=== PATIENT | male | born 1930 | race Caucasian/White ===

== ENCOUNTER → 2017-09-04 | Outpatient (CLI) | payer MEDICARE, OTHER ==
[~2017-09-04] MED LIST: ASPI-1471 PO; ATEN-65 PO; CHOL100058 PO; CHOL200051 PO; CYAN100017 PO; FLUT16SP19 NS; IBUP200C74 PO; LORA-629 PO; METR45CR10 TP; MINO100C27 PO; OMEP-218 PO; VITA100014 PO; VITA200C8 PO; [UNRECOGNIZED DRUG - CODE] PO; super beta prostate PO
== END ==
LOC: LAB 09:37
PROVIDERS: ATTEND Nurse Practitioner
DX: C44.229 Squamous cell carcinoma of skin of left ear and external auricular canal (principal)
CPT/HCPCS: 88305

== ENCOUNTER 2018-10-24 15:53 | Inpatient (IN) | payer MEDICARE, OTHER ==
--- NOTE | 2018-10-24 15:57 | ER Report ---
History and Physical Time Seen By MD: 15:57 (DALE COX DO) HPI/ROS CHIEF COMPLAINT: Alcohol intoxication HISTORY OF PRESENT ILLNESS: Patient is an 88-year-old male here with alcohol intoxication which is been ongoing since April when the patients spouse . Patient reportedly started imbibing large quantities of alcohol causing him to fall at home where he lives alone. Patient was brought in by his 2 sons today after patient's primary care physician Dr. Almanzar recommended that the patient could've through detoxification due to the danger or risk a causes him by living by himself at home. Patient is visibly intoxicated at time of evaluation and complains of lower extremity pain but denies any further pain at this time. Patient reportedly has been drinking significant amounts of alcohol at home and has had cognitive decline over the course in the past several weeks per patient's sons who have accompanied him here today one of which is patient's power of attorney lawyer. REVIEW OF SYSTEMS: Unable to obtain due to patient's mental status and intoxication (DALE COX DO) Allergies: Coded Allergies: Penicillins (Verified Allergy, Severe, syncope, 05/24/16) Sulfa (Sulfonamide Antibiotics) (Verified Allergy, Intermediate, hallucinations, 05/24/16) propoxyphene (Verified Allergy, Unknown, 09/04/17) Uncoded Allergies: DAIRY (Allergy, Unknown, 10/24/18) chlorine (Allergy, Unknown, 09/04/17) Home Meds Active Scripts Atenolol (ATENOLOL) 25 Mg Tablet, 1 TAB PO QDAY, #90 TAB 1 Refill Prov:HAILEY ALMANZAR MD 07/01/18 Reported Medications Metronidazole (METROCREAM) 45 Gm Cream..g., 1 TUAN TP BID .75% cream 04/25/17 Ibuprofen (ADVIL) 200 Mg Capsule, 1 CAP PO PRN, CAPSULE 04/25/17 [super beta prostate] No Conflict Check, 1 CAP PO DAILY 04/25/17 Omeprazole Magnesium (PRILOSEC OTC) 20 Mg Tablet.dr, 0.5 TAB PO DAILY, TAB 04/25/17 Cyanocobalamin (Vitamin B-12) (B-12) 1,000 Mcg Tablet, 1 TAB PO DAILY 04/25/17 Aspirin (ASPIR 81) 81 Mg Tablet.dr, 1 TAB PO QDAY, TAB 04/25/17 Loratadine (LORATADINE) 10 Mg Tablet, 1 TAB PO PRN 04/25/17 Cholecalciferol (Vitamin D3) (D-2000) 2,000 Unit Capsule, 1 CAP PO DAILY, CAPSULE 04/25/17 Vitamin E (Dl,Tocopheryl Acet) (VITAMIN E) 1,000 Unit Capsule, 1 CAP PO DAILY, CAPSULE 04/25/17 Discontinued Scripts Minocycline Hcl (MINOCYCLINE HCL) 100 Mg Capsule, 1 CAP PO DAILY for 90 Days, #90 CAPSULE 1 Refill Prov:HAILEY ALMANZAR MD 06/30/18 Fluticasone Prop 50 Mcg Ns (FLONASE 50 MCG NS) 16 Gm [place].susp, 2 SPRAYS NS QDAY for 30 Days, #1 BOT 4 Refills Prov:HAILEY ALMANZAR MD 05/09/17 Smoking Status: Former Smoker, Heavy Tobacco Smoker Exposure to Second Hand Smoke?: Yes (DALE COX DO) Constitutional Vital Sign - Last 24 Hours 10/24/18 10/24/18 16:03 18:33 Temp 97.5 Pulse 86 Resp 14 B/P (MAP) 141/99 Pulse Ox 83 O2 Delivery Room Air O2 Flow Rate 2.0 (ISELA SANCHEZ MD) Physical Exam General Appearance: Patient is visibly intoxicated, unable to hold a complicated conversation, becomes easily agitated but is moving all extremities and has no other neurological deficits at time of evaluation Eyes: Pupils equal and round no pallor or injection. Extraocular muscles intact ENT, Mouth: Mucous membranes are moist. Respiratory: There are no retractions, lungs are clear to auscultation. Cardiovascular: Regular rate and rhythm. Gastrointestinal: Abdomen is soft and non tender, no masses, bowel sounds normal. Neurological: Intoxicated, easily irritated at times, moving all extremities spontaneously, no focal neurologic findings aside from intoxicated state and intermittent confusion Skin: Warm and dry, no rashes. Musculoskeletal: Neck is supple non tender. Extremities are nontender, nonswollen and have full range of motion. DIFFERENTIAL DIAGNOSIS: After history and physical exam differential diagnosis was considered for alcohol intoxication, trauma, intracranial bleed, electrolyte abnormality, dehydration, poor nutrition (DALE COX DO) Medical Decision Making Data Points Result Diagram: 10/24/18 1626 10/25/18 1326 Laboratory Hematology Test 10/24/18 16:26 10/24/18 17:50 Red Blood Count 4.32 M/uL (4.00-5.60) Mean Corpuscular Volume 109.7 fL (80.0-96.0) Mean Corpuscular Hemoglobin 37.8 pg (26.0-33.0) Mean Corpuscular Hemoglobin Concent 34.4 g/dL (32.0-36.0) Red Cell Distribution Width 14.0 % (11.5-14.5) Mean Platelet Volume 9.7 fL (7.2-11.1) Neutrophils (%) (Auto) 72.6 % (39.4-72.5) Lymphocytes (%) (Auto) 15.0 % (17.6-49.6) Monocytes (%) (Auto) 11.0 % (4.1-12.4) Eosinophils (%) (Auto) 0.6 % (0.4-6.7) Basophils (%) (Auto) 0.8 % (0.3-1.4) Nucleated RBC Relative Count (auto) 0.1 /100WBC Neutrophils # (Auto) 5.3 K/uL (2.0-7.4) Lymphocytes # (Auto) 1.1 K/uL (1.3-3.6) Monocytes # (Auto) 0.8 K/uL (0.3-1.0) Eosinophils # (Auto) 0.0 K/uL (0.0-0.5) Basophils # (Auto) 0.1 K/uL (0.0-0.1) Nucleated RBC Absolute Count (auto) 0.01 K/uL Peripheral Blood Smear Yes Y/N Sodium Level 139 mmol/L (137-145) Potassium Level 3.3 mmol/L (3.5-5.0) Chloride Level 99 mmol/L (98-107) Carbon Dioxide Level 29 mmol/L (22-30) Blood Urea Nitrogen 6 mg/dl (9-21) Creatinine 0.80 mg/dl (0.66-1.25) Glomerular Filtration Rate Calc > 60.0 Random Glucose 99 mg/dl (75-110) Lactate 3.0 mmol/L (0.7-2.1) Calcium Level 9.4 mg/dl (8.4-10.2) Magnesium Level 1.8 mg/dl (1.7-2.2) Total Bilirubin 0.8 mg/dl (0.2-1.3) Aspartate Amino Transf (AST/SGOT) 76 U/L (0-35) Alanine Aminotransferase (ALT/SGPT) 46 U/L (0-56) Alkaline Phosphatase 120 U/L (0-126) Ammonia < 9 UMOL/L (9-33) Total Protein 7.0 g/dl (6.3-8.2) Albumin 3.9 g/dl (3.5-5.0) Lipase 32 U/L (23-300) Salicylates Level < 10 mg/L Salicylate Last Dose Date unknown Acetaminophen Level < 10 ug/ml Serum Alcohol 179 mg/dl Urine Color Laurita Urine Clarity Slightly-cloudy Urine pH 5.0 pH (4.8-9.5) Urine Specific [place] 1.013 Urine Protein Negative mg/dL (NEGATIVE) Urine Glucose (UA) Negative mg/dL (NEGATIVE) Urine Ketones Negative mg/dL (NEGATIVE) Urine Blood Small (NEGATIVE) Urine Nitrite Negative (NEGATIVE) Urine Bilirubin Negative (NEGATIVE) Urine Urobilinogen 2.0 mg/dL (0.2-1.9) Urine Leukocyte Esterase Small (NEGATIVE) Urine RBC 2 /HPF (0-2/HPF) Urine WBC 4 /HPF (0-5/HPF) Urine Squamous Epithelial Cells Many /LPF (</=FEW) Urine Bacteria Negative /HPF (NONE-FEW) Urine Hyaline Casts Many /LPF (NONE-FEW) Urine Mucus Few /HPF (NONE-FEW) Urine Opiates Screen Negative Urine Barbiturates Screen Negative Ur Tricyclic Antidepressants Screen Negative Urine Phencyclidine Screen Negative Urine Amphetamines Screen Negative Urine Benzodiazepines Screen Negative Urine Cocaine Screen Negative Urine Cannabinoids Screen Negative Chemistry Test 10/24/18 16:26 10/24/18 17:50 White Blood Count 7.4 k/uL (4.5-11.0) Red Blood Count 4.32 M/uL (4.00-5.60) Hemoglobin 16.3 g/dL (14.0-18.0) Hematocrit 47.4 % (42.0-52.0) Mean Corpuscular Volume 109.7 fL (80.0-96.0) Mean Corpuscular Hemoglobin 37.8 pg (26.0-33.0) Mean Corpuscular Hemoglobin Concent 34.4 g/dL (32.0-36.0) Red Cell Distribution Width 14.0 % (11.5-14.5) Platelet Count 239 K/uL (150-450) Mean Platelet Volume 9.7 fL (7.2-11.1) Neutrophils (%) (Auto) 72.6 % (39.4-72.5) Lymphocytes (%) (Auto) 15.0 % (17.6-49.6) Monocytes (%) (Auto) 11.0 % (4.1-12.4) Eosinophils (%) (Auto) 0.6 % (0.4-6.7) Basophils (%) (Auto) 0.8 % (0.3-1.4) Nucleated RBC Relative Count (auto) 0.1 /100WBC Neutrophils # (Auto) 5.3 K/uL (2.0-7.4) Lymphocytes # (Auto) 1.1 K/uL (1.3-3.6) Monocytes # (Auto) 0.8 K/uL (0.3-1.0) Eosinophils # (Auto) 0.0 K/uL (0.0-0.5) Basophils # (Auto) 0.1 K/uL (0.0-0.1) Nucleated RBC Absolute Count (auto) 0.01 K/uL Peripheral Blood Smear Yes Y/N Glomerular Filtration Rate Calc > 60.0 Lactate 3.0 mmol/L (0.7-2.1) Calcium Level 9.4 mg/dl (8.4-10.2) Magnesium Level 1.8 mg/dl (1.7-2.2) Total Bilirubin 0.8 mg/dl (0.2-1.3) Aspartate Amino Transf (AST/SGOT) 76 U/L (0-35) Alanine Aminotransferase (ALT/SGPT) 46 U/L (0-56) Alkaline Phosphatase 120 U/L (0-126) Ammonia < 9 UMOL/L (9-33) Total Protein 7.0 g/dl (6.3-8.2) Albumin 3.9 g/dl (3.5-5.0) Lipase 32 U/L (23-300) Salicylates Level < 10 mg/L Salicylate Last Dose Date unknown Acetaminophen Level < 10 ug/ml Serum Alcohol 179 mg/dl Urine Color Laurita Urine Clarity Slightly-cloudy Urine pH 5.0 pH (4.8-9.5) Urine Specific [place] 1.013 Urine Protein Negative mg/dL (NEGATIVE) Urine Glucose (UA) Negative mg/dL (NEGATIVE) Urine Ketones Negative mg/dL (NEGATIVE) Urine Blood Small (NEGATIVE) Urine Nitrite Negative (NEGATIVE) Urine Bilirubin Negative (NEGATIVE) Urine Urobilinogen 2.0 mg/dL (0.2-1.9) Urine Leukocyte Esterase Small (NEGATIVE) Urine RBC 2 /HPF (0-2/HPF) Urine WBC 4 /HPF (0-5/HPF) Urine Squamous Epithelial Cells Many /LPF (</=FEW) Urine Bacteria Negative /HPF (NONE-FEW) Urine Hyaline Casts Many /LPF (NONE-FEW) Urine Mucus Few /HPF (NONE-FEW) Urine Opiates Screen Negative Urine Barbiturates Screen Negative Ur Tricyclic Antidepressants Screen Negative Urine Phencyclidine Screen Negative Urine Amphetamines Screen Negative Urine Benzodiazepines Screen Negative Urine Cocaine Screen Negative Urine Cannabinoids Screen Negative Toxicology Test 10/24/18 16:26 10/24/18 17:50 Salicylates Level < 10 mg/L Salicylate Last Dose Date unknown Acetaminophen Level < 10 ug/ml Serum Alcohol 179 mg/dl Urine Opiates Screen Negative Urine Barbiturates Screen Negative Ur Tricyclic Antidepressants Screen Negative Urine Phencyclidine Screen Negative Urine Amphetamines Screen Negative Urine Benzodiazepines Screen Negative Urine Cocaine Screen Negative Urine Cannabinoids Screen Negative Urinalysis Test 10/24/18 17:50 Urine Color Laurita Urine Clarity Slightly-cloudy Urine pH 5.0 pH (4.8-9.5) Urine Specific [place] 1.013 Urine Protein Negative mg/dL (NEGATIVE) Urine Glucose (UA) Negative mg/dL (NEGATIVE) Urine Ketones Negative mg/dL (NEGATIVE) Urine Blood Small (NEGATIVE) Urine Nitrite Negative (NEGATIVE) Urine Bilirubin Negative (NEGATIVE) Urine Urobilinogen 2.0 mg/dL (0.2-1.9) Urine Leukocyte Esterase Small (NEGATIVE) Urine RBC 2 /HPF (0-2/HPF) Urine WBC 4 /HPF (0-5/HPF) Urine Squamous Epithelial Cells Many /LPF (</=FEW) Urine Bacteria Negative /HPF (NONE-FEW) Urine Hyaline Casts Many /LPF (NONE-FEW) Urine Mucus Few /HPF (NONE-FEW) (ISELA SANCHEZ MD) EKG/Imaging Imaging PATIENT NAME: Kristofer Aranda : 1930 MR: [id number] V: [id number] EXAM DATE: [id number] ORDERING PHYSICIAN: DALE COX TECHNOLOGIST: [place] [facility] [place]: Kristofer Aranda : 1930 Visit/Account:[id number] Date of Sevice: 10/24/2018 EXAMINATION: Head CT without intravenous contrast HISTORY: Fall. COMPARISON: None. TECHNIQUE: Contiguous axial images were obtained from the skull base to the vertex without intravenous contrast. Sagittal and coronal reformatted images are also submitted. One of the following dose optimization techniques was utilized in the performance of this exam: Automated exposure control; adjustment of the mA and/or kV according to the patient's size; or use of an iterative reconstruction technique. Specific details can be referenced in the facility's radiology CT exam operational policy. FINDINGS: Brain and intracranial structures: There are hypoattenuating bilateral subdural collections overlying the cerebral convexities with hyperattenuating internal septations. The subdural collection on the right measures 3.2 cm in thickness and the subdural collection on the left measures 1.2 cm in thickness. There is 7 mm leftward midline shift at the septum pellucidum. Sulci in the right cerebral hemisphere are narrowed. The right lateral ventricle is narrowed. There is a background of mild generalized cerebral atrophy. The basal cisterns are patent. Shane-white matter differentiation is maintained. Vessels: Calcification of the carotid siphons and intracranial vertebral arteries. Calvarium / scalp: Negative. No acute fracture. Skull base / visualized face: Negative. Visualized sinuses / orbits: Mild mucosal thickening in the maxillary sinuses and ethmoid air cells. Trace mucosal thickening in the frontal sinuses. 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 These findings were discussed with DALE COX at 10/24/2018 5:00 PM. Report Dictated By: Johan Duran MD at 10/24/2018 4:59 PM Report E-Signed By: Johan Duran MD at 10/24/2018 5:08 PM (DALE COX DO) ED Course/Re-evaluation ED Course Patient is an 88-year-old male here with alcohol intoxication brought in by patient's sons who are concerned because the patient lives alone and has been drinking alcohol consistently for the past several months since April. Patient was recommended to come in by patient's primary care physician Dr. Almanzar due to danger to himself due to alcohol intoxication. Patient was found to have a large intracranial bleed was likely old were greater than 1 month with some midline shift. Patient is DNR/DNI patient's sons do not wish to have the patient transferred. The patient's comorbidities including intracranial bleed, concurrent alcohol intoxication, danger of withdrawal precipitating worsening brain injury, I discussed the patient with Dr. Elysia woodward who sat down with the patient's sons. I also discussed the patient with the patient's primary care physician Dr. Almanzar who agreed that the patient does not have capacity due to his current situations with alcohol intoxication, intracranial bleeding and trauma. I discussed the patient with Dr. Sanchez at shift change regarding plan of care and need for inpatient hospitalization in order to monitor the patient for signs of withdrawal, possible seizures, and arrange for outpatient home health. Patient was hemodynamically stable throughout course in the emergency department. Decision to Disposition Date: Oct 24, 2018 Decision to Disposition Time: 18:00 (DALE COX DO) ED Course I reviewed this patient with Dr. Cox at shift change. Dr. Godinez came to the ER for further evaluation and spoke with the patient and his sons. He does not have the mental capacity at this time to refuse admission and the patient's son, who has power of attorney lawyer, would like to have him admitted. We gave the patient Ativan 2mg IV, Benadryl 50mg IV, and then Zyprexa 10mg IM to help facilitate admitting to [facility] because the patient is refusing to be admitted. Dr. Godinez discussed risk/benefit of these medicines with the patient's sons who are in agreement with the plan at this time. The plan will be to re-evaluate over time to see how his mental capacity is doing as the alcohol clears and re-evaluate to help determine how much the subdural is influencing the mental capacity and if it is worsening or stable. Decision to Disposition Date: Oct 24, 2018 Decision to Disposition Time: 19:12 (ISELA SANCHEZ MD) Depart Departure Latest Vital Signs Vital Signs Date Time Temp Pulse Resp B/P (MAP) Pulse Ox O2 Delivery O2 Flow Rate FiO2 10/24/18 18:33 2.0 10/24/18 16:03 97.5 86 14 141/99 83 Room Air (ISELA SANCHEZ MD) Impression: Primary Impression: Altered mental status Additional Impressions: Alcohol withdrawal Subdural hematoma Condition: Condition Unchanged Disposition: Admitted from ER Referrals: HAILEY ALMANZAR MD (PCP) Problem Qualifiers Primary Impression: Altered mental status Altered mental status type: unspecified Qualified Codes: R41.82 - Altered mental status, unspecified Additional Impressions: Alcohol withdrawal Complication of substance-induced condition: uncomplicated Qualified Codes: F10.230 - Alcohol dependence with withdrawal, uncomplicated DALE COX DO Oct 24, 2018 15:57 ISELA SANCHEZ MD Oct 24, 2018 19:20
[2018-10-24] MEDS ORDERED: THIAMINE HCL(*) 200 MG/2 ML IN 100 MG, FOLIC ACID(*) 50 MG/10 ML INJ 1 MG, MULTIVITAMIN... IV ONE (16:14)
[2018-10-24 16:46] LABS: PLATELET COUNT, AUTOMATED 239 K/uL (150-450)
--- NOTE | 2018-10-24 17:13 | RADIOLOGY IMAGING REPORT ---
FACILITY: [facility] PATIENT NAME: Kristofer Aranda : 1930 MR: [id number] V: [id number] EXAM DATE: ORDERING PHYSICIAN: DALE DAVIS TECHNOLOGIST: Location: [facility] - [place] Patient: Kristofer Aranda : 1930 Visit/Account:[id number] Date of Sevice: 10/24/2018 EXAMINATION: Head CT without intravenous contrast HISTORY: Fall. COMPARISON: None. TECHNIQUE: Contiguous axial images were obtained from the skull base to the vertex without intraven ous contrast. Sagittal and coronal reformatted images are also submitted. One of the following dose optimization techniques was utilized in the performance of this exam: Autom ated exposure control; adjustment of the mA and/or kV according to the patient's size; or use of an i terative reconstruction technique. Specific details can be referenced in the facility's radiology C T exam operational policy. FINDINGS: Brain and intracranial structures: There are hypoattenuating bilateral subdural collections overlyin g the cerebral convexities with hyperattenuating internal septations. The subdural collection on the right measures 3.2 cm in thickness and the subdural collection on the left measures 1.2 cm in thickne ss. There is 7 mm leftward midline shift at the septum pellucidum. Sulci in the right cerebral hemisp here are narrowed. The right lateral ventricle is narrowed. There is a background of mild generalized cerebral atrophy. The basal cisterns are patent. Shane-white matter differentiation is maintained. Vessels: Calcification of the carotid siphons and intracranial vertebral arteries. Calvarium / scalp: Negative. No acute fracture. Skull base / visualized face: Negative. Visualized sinuses / orbits: Mild mucosal thickening in the maxillary sinuses and ethmoid air cells. Trace mucosal thickening in the frontal sinuses. 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 These findings were discussed with DALE DAVIS at 10/24/2018 5:00 PM. Report Dictated By: Johan Duran MD at 10/24/2018 4:59 PM Report E-Signed By: Johan Duran MD at 10/24/2018 5:08 PM WSN:[id number]
[2018-10-24] MEDS ORDERED: diphenhydrAMINE 50 MG/ML VIAL IVP ONE (19:10)
[2018-10-24] MEDS ORDERED: LORazepam 2 MG/ML VIAL IVP ONE (19:10)
[2018-10-24] MEDS ORDERED: WATER STERILE 10 ML VIAL IM ONLY ONE (19:10)
[2018-10-24] MEDS ORDERED: OLANZapine 10 MG VIAL IM ONLY ONE (19:10)
[2018-10-24 19:58] VITALS: BP 151/86
[2018-10-24] MEDS ORDERED: DIAZEPAM 10 MG TAB PO PRN ×2 (20:30)
[2018-10-24] MEDS ORDERED: LORazepam 2 MG/ML VIAL IVP PRN (20:30)
[2018-10-24] MEDS ORDERED: OLANZapine 10 MG VIAL IM ONLY PRN (20:30)
[2018-10-24] MEDS ORDERED: INFLUENZA VIRUS VAC 0.5ML SYR IM ONLY ONE (20:30)
[2018-10-24] MEDS ORDERED: ACETAMINOPHEN 325 MG TAB PO PRN (20:30)
--- NOTE | 2018-10-24 21:55 | History & Physical ---
History of Present Illness Chief Complaint falls, EtOH abuse History of Present Illness 88M presented after frequent falls, and AMS. PMHx significant for EtOH abuse, depression. Daily drinker of 1/5 hard EtOH daily after of partner of 30 ye ars. Family report decline over last few months in ability to care for self and possible recent acceleration over last 2 weeks. Had fall with laceration on head 6 weeks ago several smaller falls since then. In ER ZAKIYA > 170, CT head demonstrated significant R subdural hematoma with midline shift and smaller subdural hematoma on L. Patient and family do not wish to pursue any aggressive treatment. Patient adamant he does not want to be admitted; however, he is unable to repeat back to me what could happen due to the brain bleed. Again discussed findings of blood around his brain and after brief pause he was unable to tell me anything about the radiology findings. Patient is incapable of medical decision making at this time, may resolve with detoxification from EtOH, DPOA present wishes him to be admitted for withdrawal. Patient admitted for alcohol withdrawal. History Problems: (1) Rosacea, acne Status: Chronic (2) Coronary atherosclerosis Status: Chronic (3) Essential hypertension Status: Chronic Home Meds Active Scripts Atenolol (ATENOLOL) 25 Mg Tablet, 1 TAB PO QDAY, #90 TAB 1 Refill Prov:HAILEY ALMANZAR MD 07/01/18 Reported Medications Metronidazole (METROCREAM) 45 Gm Cream..g., 1 TUAN TP BID .75% cream 04/25/17 Ibuprofen (ADVIL) 200 Mg Capsule, 1 CAP PO PRN, CAPSULE 04/25/17 [super beta prostate] No Conflict Check, 1 CAP PO DAILY 04/25/17 Omeprazole Magnesium (PRILOSEC OTC) 20 Mg Tablet.dr, 0.5 TAB PO DAILY, TAB 04/25/17 Cyanocobalamin (Vitamin B-12) (B-12) 1,000 Mcg Tablet, 1 TAB PO DAILY 04/25/17 Aspirin (ASPIR 81) 81 Mg Tablet.dr, 1 TAB PO QDAY, TAB 04/25/17 Loratadine (LORATADINE) 10 Mg Tablet, 1 TAB PO PRN 04/25/17 Cholecalciferol (Vitamin D3) (D-1999) 2,000 Unit Capsule, 1 CAP PO DAILY, CAPSULE 04/25/17 Vitamin E (Dl,Tocopheryl Acet) (VITAMIN E) 1,000 Unit Capsule, 1 CAP PO DAILY, CAPSULE 04/25/17 Discontinued Scripts Minocycline Hcl (MINOCYCLINE HCL) 100 Mg Capsule, 1 CAP PO DAILY for 90 Days, #90 CAPSULE 1 Refill Prov:HAILEY ALMANZAR MD 06/30/18 Fluticasone Prop 50 Mcg Ns (FLONASE 50 MCG NS) 16 Gm [place].susp, 2 SPRAYS NS QDAY for 30 Days, #1 BOT 4 Refills Prov:HAILEY ALMANZAR MD 05/09/17 Allergies: Coded Allergies: Penicillins (Verified Allergy, Severe, syncope, 05/24/16) Sulfa (Sulfonamide Antibiotics) (Verified Allergy, Intermediate, hallucinations, 05/24/16) propoxyphene (Verified Allergy, Unknown, 09/04/17) Uncoded Allergies: DAIRY (Allergy, Unknown, 10/24/18) chlorine (Allergy, Unknown, 09/04/17) Patient History: FH: COPD (chronic obstructive pulmonary disease) FATHER, , Age:74 BROTHER, , Age:59 SISTER, , Age:65 SISTER, , Age:55 FH: alcohol abuse BROTHER, , Age:59 Smoking Status: Former Smoker, Heavy Tobacco Smoker Exposure to Second Hand Smoke?: Yes Hx Alcohol Use: Yes (2 PINTS LIQUOR PER DAY ) Review of Systems All Systems Reviewed/Normal: Yes, Except as Noted Neurological: No Slurred Speech Eyes: No Vision Change Cardiovascular: No Chest Pain, No Palpitations Exam Vital Signs Vital Signs Date Time Temp Pulse Resp B/P (MAP) Pulse Ox O2 Delivery O2 Flow Rate FiO2 10/24/18 19:27 79 18 160/92 (114) 94 Nasal Cannula 2 10/24/18 16:03 97.5 General Appearance: Alert, Awake, No Acute Distress Neuro: No Gross deficits ENT: Normal Cardiovascular: Normal Rhythm & Peripheral Pulses Respiratory: No Respiratory Distress GI: Abd Soft and Non-Tender Medical Decision Making Data Points Result Diagram: 10/24/18 1626 10/24/18 162 Assessment and Plan Problems: (1) Alcohol withdrawal Status: Acute Assessment & Plan: Begin CIWA, thiamine, folate. Unclear what benefit detox may have in the manager long term care as he has shown resilience in his ability to get EtOH and he does not wish to stop drinking at this time. (2) Subdural hematoma Status: Chronic Assessment & Plan: Per radiology appears to be chronic, R side >3cm thickness extends frontal to occipital lobes with midline 7mm shift. L side smaller under 2cm thickness and much smaller in occipital/parietal area. Family do not wish any aggressive intervention. Possible that if slowly bleeding may decompensate and ultimately could from injury. Venous Thromboembolism Antithrombotics Is Pt On Any Antithrombotics?: No Prophylaxis Tx Contraindicated Pharmacological Contraindicati: Active Bleeding (large subdural) Exam Sepsis Risk: No Definite Risk Problem Qualifiers (1) Alcohol withdrawal: Complication of substance-induced condition: uncomplicated Qualified Codes: F10.230 - Alcohol dependence with withdrawal, uncomplicated LYDIA FOFANA DO Oct 24, 2018 21:55
[2018-10-24 23:23] VITALS: BP 142/84
[2018-10-25 02:54] VITALS: BP 152/101
[2018-10-25] MEDS: QUEtiapine FUM 25 MG TAB PO PRN ×2 (03:02→22:09)
[2018-10-25 07:11] VITALS: BP 144/85
[2018-10-25] MEDS ORDERED: KCL 2 MEQ/ML 20 MEQ/10 ML VIAL 40 MEQ in NS(*) 0.9% 1000 ML BAG 1,000 ML IV ONE (08:30)
[2018-10-25] MEDS: FOLIC ACID 1 MG TAB PO SCH (08:49)
[2018-10-25] MEDS: THIAMINE HCL 100 MG TAB PO SCH (08:49)
[2018-10-25 11:13] VITALS: BP 148/93
--- NOTE | 2018-10-25 11:55 | Hospitalist Progress Note ---
Subjective Progress Notes Subjective He is very sleepy. He denies pain. Physical Exam Vital Signs Date Time Temp Pulse Resp B/P (MAP) Pulse Ox O2 Delivery O2 Flow Rate FiO2 10/25/18 11:13 97.5 88 14 148/93 (111) 90 Nasal Cannula 1.5 Intake and Output 10/25/18 07:00 Intake Total 1000 ml Balance 1000 ml IV Total 1000 ml # Voids 1 General Appearance: No Acute Distress, Other (Sleeping) Neuro: Other (Answers to voice. ) Result Diagram: 10/24/18 1626 10/25/18 0523 Assessment and Plan Problems: (1) Alcohol withdrawal Status: Acute Assessment & Plan: Begin CIWA, thiamine, folate. 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 No requiring benzodiazepines by CIWA scoring, yet. (2) Subdural hematoma Status: Chronic Assessment & Plan: Per radiology appears to be chronic, R side >3cm thickness extends frontal to occipital lobes with midline 7mm shift. L side smaller under 2cm thickness and much smaller in occipital/parietal area. Family do not wish any aggressive intervention. He is not able to make his own medical decisions at this point based on mental status exam. Possible that if slowly bleeding may decompensate and ultimately could from injury. Treating with Seroquel for agitation. Exam Sepsis Risk: No Definite Risk Problem Qualifiers (1) Alcohol withdrawal: Complication of substance-induced condition: uncomplicated Qualified Codes: F10.230 - Alcohol dependence with withdrawal, uncomplicated GURPREET DUMONT MD Oct 25, 2018 11:55
[2018-10-25 14:58] VITALS: BP 158/99
[2018-10-25 19:02] VITALS: BP 141/83
[2018-10-25 19:59] VITALS: BP 136/86
[2018-10-25] MEDS: MELATONIN 3 MG TAB PO SCH (21:11)
[2018-10-26 00:07] VITALS: BP 152/93
[2018-10-26 06:53] VITALS: BP 132/73
[2018-10-26] MEDS: FOLIC ACID 1 MG TAB PO SCH (09:16)
[2018-10-26] MEDS: THIAMINE HCL 100 MG TAB PO SCH (09:16)
[2018-10-26] MEDS ORDERED: LORATADINE 10 MG TAB PO PRN (10:00)
[2018-10-26] MEDS: ATENOLOL 25 MG TAB PO SCH (10:21)
[2018-10-26 11:48] VITALS: BP 164/98
--- NOTE | 2018-10-26 11:56 | Hospitalist Progress Note ---
Subjective Progress Notes Subjective He is awake and alert. He denies any specific complaints. Physical Exam Vital Signs Date Time Temp Pulse Resp B/P (MAP) Pulse Ox O2 Delivery O2 Flow Rate FiO2 10/26/18 09:47 83 10/26/18 08:15 Nasal Cannula 2.0 10/26/18 06:53 98.9 75 20 132/73 (92) Intake and Output 10/26/18 07:00 Intake Total 3020 ml Balance 3020 ml Intake Oral 2000 ml IV Total 1020 ml # Voids 4 # Bowel Movements 1 General Appearance: Alert, Awake Neuro: Other (No focal motor deficits. He is oriented to person and place, but only partially to time. His short term memory is poor - able to recall only 1 of 3 items.) Eyes: PERRLA Cardiovascular: Regular Rate and Rhythm Respiratory: Clear to Auscultation GI: Soft and Non-Tender Extremities: Warm Integumentary: Generalized Fragile Skin Result Diagram: 10/24/18 1626 10/25/18 1326 Assessment and Plan Problems: (1) Subdural hematoma Status: Chronic Assessment & Plan: Radiology reported it appears to be chronic, R side >3cm thickness extends frontal to occipital lobes with midline 7mm shift. Left side is smaller under 2cm thickness and much smaller in occipital/parietal area. Patient and family do not wish any aggressive intervention. It appears he is not able to make his own medical decisions at this point based on mental status exam. Both family and patient would like to try to have him back in his own home with help from Home Health (or possibly Hospice if needed). The patient and his family were advised he should not drive any longer. The family is in agreement, but patient is somewhat resistant. Will have discharge planning work with them. (2) Alcohol withdrawal Status: Acute Assessment & Plan: He is on CIWA protocol. Not requiring benzodiazepines by CIWA scoring, as of yet. He is on vitamin supplements. Exam Sepsis Risk: No Definite Risk Problem Qualifiers (1) Alcohol withdrawal: Complication of substance-induced condition: uncomplicated Qualified Codes: F10.230 - Alcohol dependence with withdrawal, uncomplicated VERONICA HARMON MD Oct 26, 2018 11:56
--- NOTE | 2018-10-26 13:29 | NUR ---
Occupational Therapy Impression Mod Ax1 supine<>sit bed mobility with trapeze. CGA/SBA ambulation with RW in room. Pt declined toileting. Seated up in chair for lunch. Rec speech consult for cognition to promote recommendations for safe discharge. Rec home with HomeHealth, [facility] for IADLs, and possible [facility] services. Occupational Therapy Goals 1) Pt will be SBA UB/LB dressing. 2) Pt will be SBA grooming/hygiene. 3) Pt will be SBA toilet task. Patient's Goal
--- NOTE | 2018-10-26 14:21 | NUR ---
Physical Therapy Impression PT eval complete. Physical Therapy Goals 1. Mod I bed mobility. 2. SBA transfers. 3. SBA gait x 150' with least restrictive device. 4. Ascend/descend 1 stair. Patient's Goals
--- NOTE | 2018-10-26 14:24 | NUR ---
Physical Therapy Impression Pt required encouragement to participate. Pt requires Mod A x2 for supine>sit transfer, CGA to stand, and CGA to ambulate 10' with RW but was self-limiting on distance. Recommend additional assistance at home as well as home health. Also recommended Speech evaluation due to decreased cognition, Dr. Jenni Maxwell made aware of recommendation. Physical Therapy Goals 1. Mod I bed mobility. 2. SBA transfers. 3. SBA gait x 150' with least restrictive device. 4. Ascend/descend 1 stair. Patient's Goals
[2018-10-26 15:39] VITALS: BP 164/96
--- NOTE | 2018-10-26 16:03 | SPEECH INITIAL EVALUATION ---
SPEECH THERAPY EVALUATION REPORT Cognitive Linguistic Assessment Patient Name: Kristofer Astorga Date of Evaluation: 10/26/18 Patient : [birth year], 88 yo Clinician: Lindsay Galvan M.S., CCC-DIRECTOR OF SOLUTIONS ARCHITECTURE Treatment Dx: Moderate cognitive linguistic deficits BACKGROUND The patient is an 88 year old male who presented to the ED at [facility] on 10/24/18 with AMS, frequent falls. PMHx significant for EtOH abuse, depression. The pt experienced a fall with laceration on head [address] demonstrated significant R subdural hematoma with midline shift and smaller subdural hematoma on L. Dx: subdural hematoma, EtOH withdrawal PMHx: depression, EtOH abuse Prior living situation: pt resides alone in private residence. Receives assistance for meals a few times a week. Independent with majority of ADLs/IADLs. Family recently insisted he cease driving activities. ASSESSMENT AND INTERVENTIONS The pt participated in a cognitive linguistic assessment at the bedside using the [place] Cognitive Assessment (MoCA) version 7.1 paired with informal evaluation procedures. 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 -Cognitive Domains Demonstrating Strength: item naming, temporal orientation, environmental orientation Pt presents with moderate cognitive linguistic deficits most notably characterized by memory impairments, with subsequent impact on efficient problem solving skills and completion of tasks requiring executive functioning. Processing speed was also delayed. Unclear to what extent the pt is affected by symptoms of withdrawal; however, etiology of cognitive linguistic deficits is consistent with brain injury. Deficits in short-term memory resulted in a tendency to repeat previously discussed topics of conversation. The pt required multiple repetitions of task instructions, and frequently repeated prior mistakes during completion of subtests on the MoCA. He often acknowledged errors, but struggled to successfully problem-solve via modification to prior attempts. He became disorganized throughout task completion, with further disorganization noted in verbal output. Executive function skills were observed during tasks requiring planning and self-monitoring. Areas of strength were noted in attention, orientation. The pt also exhibited a fair amount of insight into current deficits, with knowledge of medical etiology/pathology and acceptance of recommended elevated level of assistance upon d/c to home environment. Results and recommendations were transparently discussed with the pt and his sons at the bedside. Sons endorse a moderate decline in cognitive status in comparison to baseline. For optimized safety with concern for ability to manage IADL/ADLs, initial provision of 24/7 support is recommended at discharge. Additionally recommend ST services to further support transition to home living environment in the setting of progressive/chronic subdural hematomas. RECOMMENDATIONS Acute ST 4x/wk ST Initial provision of 24/7 supervision to support safe transition to home living environment REHAB PROGNOSIS: Fair. Pt w/ emerging insight into deficits, motivated to return home, strong family support ST POC 1. Pt will recall 2/2 items embedded within a functional activity when provided with mod verbal cues and access to external visual aides to compensate for short-term memory deficits. Thank you for this referral. Please call [phone] Lindsay Galvan M.S., CCC-DIRECTOR OF SOLUTIONS ARCHITECTURE [*] CLAY
--- NOTE | 2018-10-26 16:06 | NUR ---
Speech Therapy Impression Evaluation complete. See report for detailed information. Pt presents with moderate cognitive linguistic deficits most notably characterized by memory impairments, with subsequent impact on efficient problem solving skills and completion of tasks requiring executive functioning. Processing speed was also delayed. Etiology is consistent with brain injury. For optimized safety with concern for ability to manage IADL/ADLs, initial provision of 24/7 support is recommended at discharge. Additionally rec [facility] services to further support transition to home living environment in the setting of progressive/chronic subdural hematomas.
[2018-10-26 19:43] VITALS: BP 165/98
[2018-10-26] MEDS: MELATONIN 3 MG TAB PO SCH (21:03)
[2018-10-27 01:35] VITALS: BP 168/97
[2018-10-27 06:16] LABS: PLATELET COUNT, AUTOMATED 155 K/uL (150-450)
[2018-10-27 06:34] VITALS: BP 166/92
[2018-10-27] MEDS ORDERED: Tamsulosin Hcl PO (08:51)
[2018-10-27] MEDS ORDERED: THIA100T20 PO (08:51)
--- NOTE | 2018-10-27 08:54 | Hospitalist Depart ---
Discharge Summary Reason for Hosp/Final Diag: (1) Subdural hematoma Status: Chronic Hospital Course & Plan: Radiology reported it appears to be chronic, R side >3cm thickness extends frontal to occipital lobes with midline 7mm shift. Left side is smaller under 2cm thickness and much smaller in occipital/parietal area. Patient and family do not wish any aggressive intervention. It appears he is not able to make his own medical decisions at this point based on mental status exam. Both family and patient would like to try to have him back in his own home with help from Home Health (or possibly Hospice if needed). The patient and his family were advised he should not drive any longer. The family is in agreement, but patient is somewhat resistant. (2) Alcohol withdrawal Status: Acute Hospital Course & Plan: He was on CIWA protocol, but did not require treatment. He has been placed on thiamine. Departure Latest Vital Signs Vital Signs 10/27/18 10/27/18 06:34 07:01 Temp 97.6 Pulse 69 Resp 16 B/P (MAP) 166/92 (116) Pulse Ox 96 O2 Delivery Nasal Cannula O2 Flow Rate 1.0 Weight (Pounds): 147 Result Diagram: 10/27/1852510/27/18525 Condition: Improved Discharge: Home Health PT/OT Follow Up For: PT For Strengthening, OT For ADL's, PT Evaluation and Treat, OT Evaluation and Treat Home Health RN Follow Up For: Medication Management, Nursing Assessment Home Health [facility] Follow Up For: ADL Assistance, Other Discharge Code Status: DNR, DNI Discharge Instructions Home Meds Active Scripts Thiamine Hcl (VITAMIN B-1) 100 Mg Tablet, 100 MG PO DAILY@0900, #30 TAB Prov:JIGNESH PENNINGTON DO 10/27/18 [Tamsulosin Hcl(*) 0.4 Mg Cap] 0.4 MG CAP No Conflict Check, 0.4 MG PO QHS, #30 CAP Prov:JIGNESH PENNINGTON DO 10/27/18 Atenolol (ATENOLOL) 25 Mg Tablet, 1 TAB PO QDAY, #90 TAB 1 Refill Prov:TRACIE ALMANZAR MD 07/01/18 Reported Medications [super beta prostate] No Conflict Check, 1 CAP PO DAILY 04/25/17 Omeprazole Magnesium (PRILOSEC OTC) 20 Mg Tablet.dr, 0.5 TAB PO DAILY, TAB 04/25/17 Cyanocobalamin (Vitamin B-12) (B-12) 1,000 Mcg Tablet, 1 TAB PO DAILY 04/25/17 Loratadine (LORATADINE) 10 Mg Tablet, 1 TAB PO PRN 04/25/17 Cholecalciferol (Vitamin D3) (D-2000) 2,000 Unit Capsule, 1 CAP PO DAILY, CAPSULE 04/25/17 Vitamin E (Dl,Tocopheryl Acet) (VITAMIN E) 1,000 Unit Capsule, 1 CAP PO DAILY, CAPSULE 04/25/17 Discontinued Reported Medications Metronidazole (METROCREAM) 45 Gm Cream..g., 1 TUAN TP BID .75% cream 04/25/17 Ibuprofen (ADVIL) 200 Mg Capsule, 1 CAP PO PRN, CAPSULE 04/25/17 Aspirin (ASPIR 81) 81 Mg Tablet.dr, 1 TAB PO QDAY, TAB 04/25/17 Discontinued Scripts Minocycline Hcl (MINOCYCLINE HCL) 100 Mg Capsule, 1 CAP PO DAILY for 90 Days, #90 CAPSULE 1 Refill Prov:TRACIE ALMANZAR MD 06/30/18 Fluticasone Prop 50 Mcg Ns (FLONASE 50 MCG NS) 16 Gm [place].susp, 2 SPRAYS NS QDAY for 30 Days, #1 BOT 4 Refills Prov:TRACIE ALMANZAR MD 05/09/17 Diet: Regular Activity: As Tolerated Copies to: TRACIE ALMANZAR MD ; Venous Thromboembolism Antithrombotics Is Pt On Any Antithrombotics?: No [id number] Certification Face to Face Home Health Certification Patient's Primary Care Provider: Tracie Almanzar MD Institutional Provider conducted the [id number] encounter. Electronic Undersigning Physician Certifies Home Health. I certify that the patient has been under my care and that I had a [id number] encounter that meets the physician [id number] encounter requirements with this patient. This patient is home-bound due to safety issues and continues to require assistance with ADL's. I certify that based on my findings, that Nursing, Aides and the following Home Health services are medically necessary: Medical Necessity: Nursing, Rehab Date Face to Face Conducted: Oct 27, 2018 Problem Qualifiers (1) Alcohol withdrawal: Complication of substance-induced condition: uncomplicated Qualified Codes: F10.230 - Alcohol dependence with withdrawal, uncomplicated JIGNESH PENNINGTON DO Oct 27, 2018 08:54
--- NOTE | 2018-10-27 08:55 | NUR ---
OCCUPATIONAL THERAPY Dressing Assistance: SBA Dressing Aid Required: None Bathing Assistance: N/T with OT Home Assessment: Not Completed-Pt will benefit from home assessment and appropriate safety recommendations Feeding Assistance: Independent Feeding Specialized Equipment: None Verbalizes Needs: Yes Understands Precautions: Yes Cooperative: Yes Family Teaching: No Occupational Therapy Comment:
[2018-10-27] MEDS ORDERED: PANTOPRAZOLE SOD 40 MG TABEC PO SCH (09:00)
[2018-10-27] MEDS ORDERED: CYANOCOBALAMIN 1000 MCG TAB PO SCH (09:00)
[2018-10-27] MEDS: ATENOLOL 25 MG TAB PO SCH (09:11)
[2018-10-27] MEDS: FOLIC ACID 1 MG TAB PO SCH (09:11)
[2018-10-27] MEDS: THIAMINE HCL 100 MG TAB PO SCH (09:11)
--- NOTE | 2018-10-27 10:07 | Miscellaneous Provider Note ---
Miscellaneous Provider Note Note This patient is unable to make his own decisions secondary to dementia and subdural hematoma. Decision making has been deferred to his son, who is listed as the power of naturalist. JIGNESH PENNINGTON DO Oct 27, 2018 10:07
[2018-10-27] MEDS ORDERED: TAMSULOSIN HCL 0.4 MG CAP PO SCH (21:00)
[2018-10-28] MEDS ORDERED: FEXO-67 PO (15:30)
[2018-10-28] MEDS ORDERED: ACET-2146 PO ×2 (15:30)
[2018-10-28] MEDS ORDERED: CIME200T87 PO (15:30)
[2018-10-28] MEDS ORDERED: MULT-1167 PO (15:30)
[2018-10-28] MEDS ORDERED: TAMS0.4C25 PO (15:30)
[2018-10-28] MEDS ORDERED: METR45CR10 TP (15:33)
[2018-10-28] MEDS ORDERED: THIA100T20 PO (16:16)
== END 2018-10-27 13:50 | disposition home health service (06) | DRG 896 ==
LOC: ER 15:58 → MED 19:22
PROVIDERS: ADMIT Internal Medicine; ATTEND Internal Medicine
DX: F10.230 Alcohol dependence with withdrawal, uncomplicated (principal); I62.03 Nontraumatic chronic subdural hemorrhage; I25.10 Atherosclerotic heart disease of native coronary artery without angina pectoris; I10 Essential (primary) hypertension; Z66 Do not resuscitate; F32.9 Major depressive disorder, single episode, unspecified; L71.9 Rosacea, unspecified; F03.90 Unspecified dementia, unspecified severity, without behavioral disturbance, psychotic disturbance, mood disturbance, and anxiety; Y90.6 Blood alcohol level of 120-199 mg/100 ml; Z91.81 History of falling; Z88.0 Allergy status to penicillin; Z88.2 Allergy status to sulfonamides; Z88.8 Allergy status to other drugs, medicaments and biological substances; Z87.891 Personal history of nicotine dependence
CPT/HCPCS: 36415; 70450; 80305; 80320; 80329; 81001; 82040; 82140; 82247; 82310; 82374; 82435; 82565; 82947; 83605; 83690; 83735; 84075; 84132; 84155; 84295; 84443; 84450; 84460; 84520; 85025; 92523; 96365; 96375; 97162; 97166; 99285; J1200; J2060; J3411; J3475; J3480; J7030